=== PATIENT | female | born 1995 | race Caucasian/White ===

== ENCOUNTER 2023-01-29 14:47 | Emergency (ER) | payer BC, SELFPAY ==
--- NOTE | ~2023-01-29 | XR_ITS ---
EXAM: XR ankle LT min 3V DATE: 01/29/2023 15:45 HISTORY: FELL OFF ROPE SWING 01/29/23. LAT./MEDIAL PAIN/SWELLING. . COMPARISON: None available. FINDINGS: Normal mineralization. Comminuted medial talar fracture. Possible oblique nondisplaced fra cture of the distal tibia, seen only in one view. No lytic or blastic lesion. Joint spaces are mainta ined. Moderate Achilles and mild plantar enthesopathy. No erosion or periosteal change. Soft tissue s welling about the ankle. IMPRESSION: Comminuted medial talar fracture. Possible oblique nondisplaced fracture of the distal ti bisi. Recommend CT of the ankle for further evaluation. Reviewed, dictated and finalized at location [facility]. IMPRESSION: Comminuted medial talar fracture. Possible oblique nondisplaced fra cture of the distal tibia. Recommend CT of the ankle for further evaluation.
[2023-01-29 14:55] VITALS: BP 131/81; PULSE 77; RESP 20; TEMP 36.4; O2SAT 98
--- NOTE | 2023-01-29 17:19 | ED.GENADULT ---
HPI - General Adult General Chief complaint: Extremity Injury, Lower Stated complaint: left ankle injury Source: patient Mode of arrival: ambulatory Limitations: no limitations History of Present Illness HPI narrative: Patient presents for evaluation of pain in left ankle and foot since yesterday. She indicates she was on a rope swing and fell down and injured her left ankle/foot on a rock. Since that time she has noted swelling and bruising to the affected area. She rates her pain 4/10 severity with rest and 6 to 8/10 severity with weight-bearing and movement. Pain is throbbing. No paresthesias. She took 800 mg of ibuprofen without considerable improvement in her symptoms thereafter. Related Data Home Medications Medication Instructions Recorded Confirmed metformin 500 mg tablet 500 mg PO BID 01/29/23 01/29/23 Allergies Allergy/AdvReac Type Severity Reaction Status Date / Time No Known Allergies Allergy Verified 01/29/23 15:07 Review of Systems Review of Systems: CONSTITUTIONAL: Denies fever, chills, or sweats. EYES: Denies visual changes, redness, or discharge. ENT: Denies rhinorrhea, congestion, sore throat, or otalgia. CARDIOVASCULAR: Denies chest pain, palpitations, or edema. RESPIRATORY: Denies cough or dyspnea. GASTROINTESTINAL: Denies abdominal pain, nausea, vomiting, or diarrhea. GENITOURINARY: Denies dysuria or hematuria. SKIN: Reports bruising to left ankle and foot. Denies rash or itching. MUSCULOSKELETAL: Reports pain and swelling in the left ankle and foot. NEUROLOGIC: Denies headache, numbness, dizziness, or weakness. PSYCHIATRIC: Denies anxiety or depression. [facility] Past Medical History Medical History PCOS (polycystic ovarian syndrome) Surgical History Surgical History No pertinent past surgical history Family History Family History Mother Family history non-contributory Social History Social History (Updated 01/29/23 @ 17:24 by DRISS Strong, COLE) Gender identity (if verbalized by the patient): Female Spiritual care concerns: No Exam Narrative: GENERAL: Well-appearing, well-nourished, and in no acute distress. HEAD: Normocephalic, atraumatic. EYES: PERRLA and EOMI. ENT: Nares clear, no rhinorrhea or epistaxis. Mucous membranes moist. Oropharynx without tonsillar hypertrophy exudate or other lesions. Bilateral TMs pearly josé nonbulging NECK: Supple. No adenopathy or masses. No carotid bruits or JVD CHEST: Clear to auscultation. No respiratory distress. No wheezes rales or rhonchi HEART: Regular rate and rhythm. No murmur heard. Normal peripheral pulses. ABDOMEN: Soft, nontender, nondistended, normal active bowel sounds. EXTREMITIES: Left ankle is edematous. Decreased dorsi and plantar flexion of the left foot secondary to pain. Tenderness noted circumferentially throughout the left ankle. SKIN: Ecchymosis noted to the medial and lateral malleolus on the left NEURO: No focal deficits. Alert and oriented x3. PSYCH: Normal mood and affect. Course Course Emergency Course: This is a 27-year-old female who presented for evaluation of pain and swelling left ankle. Upon receipt of imaging, I contacted Orthopedics here in spoke with Dr. Bravo. He recommended that patient be transferred to a trauma center for further evaluation treatment. I contacted [facility] in [place] and spoke with nurse Cummins who indicated that Dr. Domingo would agree to accept pt to the Dept there. Patient was placed in a short-leg OCL. Post splint neurovascular check intact. Patient was updated throughout her stay here and was in agreement plan of care, including plans for transfer. Level of Care: Express Care Visit Vital Signs Vital signs: Vital Signs Temperature 36.4 C 01/29/23 14:55 P
== END 2023-01-29 17:30 | disposition short-term general hospital (02) ==
PROVIDERS: Emergency Provider Nurse Practitioner
DX: S92.102A Unspecified fracture of left talus, initial encounter for closed fracture (principal); S82.302A Unspecified fracture of lower end of left tibia, initial encounter for closed fracture; W09.1XXA Fall from playground swing, initial encounter
CPT/HCPCS: 29515; 73610; 81025; 99214; G0463

== ENCOUNTER 2023-11-05 11:24 | Emergency (ER) | payer BC, SELFPAY ==
[2023-11-05 11:36] VITALS: BP 141/79; PULSE 76; RESP 16; TEMP 36.6; O2SAT 98
--- NOTE | 2023-11-05 12:17 | ED.URI ---
HPI - URI/Sore Throat General Chief Complaint: Upper Respiratory Infection Stated Complaint: bad cough Time Seen by Provider: 11/05/23 12:00 Source: patient, RN notes reviewed and old records reviewed Mode of arrival: ambulatory Limitations: no limitations History of Present Illness HPI Narrative: 28-year-old female accompanied by mother presents to Express care with complaints of 2 week duration cough which is making it difficult to sleep. Patient is 16 weeks and has taken for her cough some Robittussin cough syrup. patient denies any fevers, chills or sweats admits to some sinus congestion and drainage. MD elicited complaint: cough, rhinorrhea and nasal congestion Pertinent past history: asthma and seasonal allergies Onset (ago): week(s) (2 weeks) Severity: moderate Treatments prior to arrival: other (Robitussin) Related Data Home Medications Medication Instructions Recorded Confirmed metformin 500 mg tablet 500 mg PO BID 01/29/23 01/29/23 Allergies Allergy/AdvReac Type Severity Reaction Status Date / Time No Known Allergies Allergy Verified 01/29/23 15:07 Review of Systems Review of Systems: CONSTITUTIONAL: Denies malaise, chills, sweats, or fever. EYES: Denies visual changes, redness, or discharge. ENT: Reports rhinorrhea, congestion, sinus pain,no otalgia and no sore throat. CARDIOVASCULAR: Denies chest pain, palpitations, or edema. RESPIRATORY: Reports cough.? Denies dyspnea. GASTROINTESTINAL: Denies abdominal pain, nausea, vomiting, diarrhea SKIN: Denies rash or itching. MUSCULOSKELETAL: Denies myalgia. NEUROLOGIC: Denies headache. All systems reviewed & are unremarkable except as noted in HPI and below PMFSH Past Medical History Medical History (Updated 11/06/23 @ 21:01 by Sandra Joiner NP) Asthma PCOS (polycystic ovarian syndrome) Surgical History Surgical History (Updated 11/06/23 @ 21:00 by Sandra Joiner NP) History of arthroscopy of right knee History of tonsillectomy Family History Family History Mother Family history non-contributory Social History Social History Smoking status: Never smoker Alcohol use details: no alcohol is 16 weeks Substance use type: does not use Gender identity (if verbalized by the patient): Female Spiritual care concerns: No Comments At time of signature, agree with nursing past medical, surgical, social and family history. There is no relevant family history pertinent to the presenting complaint Exam Narrative: GENERAL: Well-appearing, well-nourished, and in no acute distress. HEAD: Normocephalic EYES: PERRLA, conjunctivae clear ENT: Nares clear, turbinates edematous and erythematous, clear discharge. Mucous membranes moist. TM pearly josé with dull light reflex bilaterally; no tragal tenderness. Oropharynx erythematous without lesions. Tonsils not present and throat without exudate, no drooling, no hoarseness, no trismus, uvula midline. NECK: Supple. No lymphadenopathy CHEST: Scattered wheezing on auscultation, breath sounds equal Scattered wheezing, no rhonchi, rales, or stridor. No respiratory distress, speaks in full sentences.SAO2 98% on room air HEART: Regular rate and rhythm. No murmur heard. SKIN: Warm, dry, no rash. NEURO: Alert and oriented x3. PSYCH: Normal mood and affect Course Course Emergency Course: Patient is aware of diagnosis, understands and agrees to treatment plan.? Anticipatory guidance given.? Patient agrees to follow-up as directed and is aware of reasons to seek care at the emergency department. Portions of this record may have been created with voice recognition software Level of Care: Express Care Visit Vital Signs Vital signs: Vital Signs Temperature 36.6 C 11/05/23 11:36 Pulse Rate 76 11/05/23 11:36 Respiratory Rate
== END 2023-11-05 12:44 | disposition home or self-care (01) ==
PROVIDERS: Emergency Provider Registered Nurse
DX: J32.9 Chronic sinusitis, unspecified (principal); R05.1 Acute cough; J45.909 Unspecified asthma, uncomplicated; E28.2 Polycystic ovarian syndrome
CPT/HCPCS: 99213; G0463